=== PATIENT | female | born 1940 | race Caucasian/White ===

== ENCOUNTER 2016-12-03 14:45 | Outpatient (CLI) | payer MEDICARE, OTHER ==
--- OUTSIDE RECORDS SUMMARY | 2016-12-03 14:50 | XMS | Clinical Summary ---
:1940 Author Organization [facility] Address [address] [place] [address] Phone Care Team Providers Name Role Phone , Primary Care Provider Unavailable Allergies No Known Allergies Current Medications Prescription Sig. Disp. Refills Start Date End Date Status amLODIPine (NORVASC) 10 Take 10 mg by mouth Active MG tablet daily. clopidogrel (PLAVIX) 75 Take 75 mg by mouth Active mg tablet daily. levothyroxine (SYNTHROID, Take 75 mcg by Active LEVOTHROID) 75 MCG tablet mouth Every morning on an empty stomach. lisinopril Take 40 mg by mouth Active (PRINIVIL,ZESTRIL) 40 MG daily. tablet simvastatin (ZOCOR) 20 MG Take 20 mg by mouth Active tablet daily. propranolol (INDERAL LA) Take 120 mg by Active 120 MG 24 hr capsule mouth daily. aspirin 81 MG EC tablet Take 81 mg by mouth Active daily. Active Problems Problem Noted Date Hyperlipidemia LDL goal <130 11/29/2015 Hypertension with goal blood pressure less than 130/85 11/29/2015 Lung cancer (HCC) 11/29/2015 Parotid mass 11/29/2015 Aneurysm of left carotid artery (HCC) 11/29/2015 History of left-sided carotid endarterectomy 11/29/2015 History of right-sided carotid endarterectomy 11/29/2015 Simple chronic bronchitis (HCC) 11/29/2015 Encounters Date Type Specialty Care Team Description 09/25/2016 Scanned Document from Last 3 Months Social History Tobacco Use Types Packs/Day Years Used Date Current Every Day Smoker Alcohol Use Drinks/Week oz/Week Comments No Sex Assigned at Date Recorded Not on file Last Filed Vital Signs Vital Sign Reading Time Taken Blood Pressure 120/59 01/04/2016 6:45 AM CDT Pulse 75 01/04/2016 6:45 AM CDT Temperature 36.7 C (98 F) 01/04/2016 6:45 AM CDT Respiratory Rate 19 01/04/2016 6:45 AM CDT Oxygen Saturation 96% 01/04/2016 6:45 AM CDT Inhaled Oxygen Concentration - - Weight 68.4 kg (150 lb 11.2 oz) 01/04/2016 6:45 AM CDT Height 162.6 cm (5' 4") 01/03/2016 10:00 AM CDT Body Mass Index 25.87 01/04/2016 6:45 AM CDT Plan of Treatment Not on file Implants Implanted Type Area Mechanical Intern Device Expiration Model / Identifier Date Serial / Lot Azur Cx Coil Coil Left: TERUMO:MICROVEN 09/08/2020 [id number] / Implanted:Qty: 1 on 11/29/2015 by Bob Noriega MD Carotid TION / Artery [id number] Azur Helical Hydrocoil Embolization System Coil Left: TERUMO:MICROVEN 07/2020 [id number] / Implanted:Qty: 1 on 11/29/2015 by Bob Noriega MD Carotid TION / Artery [id number] Azur Helical Hydrocoil Embolization System Coil Left: TERUMO:MICROVEN [id number] / Implanted:Qty: 1 on 11/29/2015 by Bob Noriega MD Carotid TION / Artery [id number] Azur Helical Hydrocoil Embolization System Coil Left: TERUMO:MICROVEN [id number] / Implanted:Qty: 1 on 11/29/2015 by Bob Noriega MD Carotid TION / Artery [id number] Dallas Viabhan Endoprosthesis Stents- GORE 09/19/2018 [id number] / Implanted:Qty: 1 on 01/03/2016 by Bob Noriega MD Periphe [id number] / ral Dallas Viabahn Endoprosthesis Stents- GORE 02/21/2018 [id number] / Implanted:Qty: 1 on 01/03/2016 by Bob Noriega MD Periphe [id number] / ral Results Not on filefrom Last 3 Months
--- NOTE | 2016-12-03 16:10 | CT ---
CT CHEST NONCONTRAST: Date: 12/03/16 HISTORY: Right upper lobe lung cancer. Radiation therapy. Restaging. COMPARISON: 05/24/16 and 12/05/15. FINDINGS: Parenchymal scarring at the right apex surrounds a 0.4 cm nodule that is unchanged in appearance fro m the previous exam. More inferiorly within the right upper lobe, an oval 0.4 cm nodule is now appar ent. No other new parenchymal nodules are visible. No pleural fluid or pneumothorax. Lack of contras t limits evaluation of the mediastinum. No bulky adenopathy is apparent. Bilateral breast prostheses are partially visualized. IMPRESSION: 1. Stable CT appearance of the original right upper lobe nodule with surrounding scarring. 2. Interval appearance of a 0.4 cm nodule slightly more inferiorly within the right upper lobe. Whi le its morphology is not particularly aggressive, its interval appearance must be viewed with some d egree of concern. Close continued CT follow-up is suggested. POS: [facility]
== END 2016-12-03 14:46 | disposition home or self-care (01) ==
LOC: SCSCT 14:45
PROVIDERS: ATTEND Radiology Radiation Oncology
DX: C34.11 Malignant neoplasm of upper lobe, right bronchus or lung (principal)
CPT/HCPCS: 71250

== ENCOUNTER 2017-02-26 15:25 | Outpatient (CLI) | payer MEDICARE, OTHER ==
--- NOTE | 2017-02-26 18:57 | CT ---
CHEST CT WITHOUT CONTRAST: 02/26/17 COMPARISON: 12/03/16, 05/24/16, 12/05/15. HISTORY: Right upper lobe cancer. Status post video surgery. TECHNIQUE: Chest CT is performed without contrast. Coronal reformatted images are submitted for interpretation. FINDINGS: Limited evaluation of the mediastinum due to the lack of iodinated contrast. No mediastinal mass, lym phadenopathy, or hematoma. Nonspecific, nonenlarged, right paratracheal and precarinal lymph nodes. H eart size is within normal limits. No significant pericardial fluid. Coronary artery calcifications a re identified. Stable atherosclerosis of the visualized aorta. Focal prominence of the origin of the left subclavian artery. Bilateral breast augmentation is noted. No axillary lymphadenopathy. The visualized upper solid organs are unremarkable. Gallbladder is surgically absent. Trachea and pina tral bronchi are patent. Stable interstitial opacification of the right upper lobe. Stable linear opa city on the periphery of this area of interstitial opacification. The thickness of this linear opacit y continues to be approximately 5 mm. No new abnormal opacity in the left or right lung parenchyma ar e appreciated. Stable focal opacity in the posterior aspect of the left upper lobe, measuring 0.7 cm. Minimal scarring in the lingula is noted. No pneumothorax or pleural effusion. No lytic or blastic l esions in the osseous structures. IMPRESSION: 1. Stable post treatment change in the right upper lobe. 2. Stable opacity in the left upper lobe, since May 2016. Opacity is difficult to appreciate o n exam from November 2015. Consider repeat exam in 7 months to assess for 1.5 years of stability. Lesion size is at the imaging threshold for PET. POS: [facility]
== END 2017-02-26 15:26 | disposition home or self-care (01) ==
LOC: SCSCT 15:25
PROVIDERS: ATTEND Radiology Radiation Oncology
DX: C34.11 Malignant neoplasm of upper lobe, right bronchus or lung (principal); R91.8 Other nonspecific abnormal finding of lung field; Z98.890 Other specified postprocedural states
CPT/HCPCS: 71250

== ENCOUNTER 2017-05-12 10:13 | Emergency (ER) | payer MEDICARE, OTHER ==
--- NOTE | 2017-05-12 12:10 | RAD ---
AP VIEW OF THE CHEST: INDICATION: Cough, body aches, and sore throat. COMPARISON: None. FINDINGS: Lungs are clear. Cardiomediastinal silhouette is within normal limits. There is scarring within the right upper lobe. No pleural effusion is evident. No acute osseous abnormality is noted. There is partial visualization of instrumentation involving the right proximal humerus. IMPRESSION: 1. No acute cardiopulmonary abnormality. 2. Mild scarring involving the right lung apex. POS: [facility]
== END 2017-05-12 11:35 | disposition home or self-care (01) ==
LOC: SCSER 10:13
DX: J40 Bronchitis, not specified as acute or chronic (principal); B34.9 Viral infection, unspecified; E78.5 Hyperlipidemia, unspecified; Z86.73 Personal history of transient ischemic attack (TIA), and cerebral infarction without residual deficits; J44.9 Chronic obstructive pulmonary disease, unspecified; F17.210 Nicotine dependence, cigarettes, uncomplicated; Z79.899 Other long term (current) drug therapy
CPT/HCPCS: 71045; 99406; J7620

== ENCOUNTER 2017-10-07 12:30 | Outpatient (CLI) | payer MEDICARE, OTHER ==
--- NOTE | 2017-10-07 15:27 | CT ---
CT CHEST: Date: 10/07/17 COMPARISON: 12/05/15, 05/24/16, 02/26/17, and 12/03/16. HISTORY: 6 month follow-up examination for right upper lobe lung cancer, status post radiation therapy. Restag ing. TECHNIQUE: Serial axial CT imaging obtained at 5 mm intervals from thoracic inlet through upper abdomen without contrast. Coronal reformatted imaging obtained. FINDINGS: Lack of contrast media limits assessment of the imaged viscera, the vascular structures, and for lymp hadenopathy. Bilateral breast implants are present. Imaged upper abdomen demonstrated cholecystectomy clips. There is atherosclerotic calcification of the abdominal aorta and its branches. No mediastinal or pleural fluid. Trace stable pericardial fluid noted anteriorly. There is atherosclerotic calcification of the coronary arteries, as well as the thoracic aorta at the level of the arch extending into the origin of the great vessels. Limited assessment for lymphadenopathy demonstrates a lymph node in the AP window measuring 1.2 cm in short axis dimension, enlarged and not definitely seen on prior imaging. There are subcentimeter pre carinal nodes which are grossly unchanged. There is an ill-defined focal area of pulmonary parenchymal opacity in the right upper lobe with nuris cent areas of linear opacity extending anteriorly to the pleural surface, as well as laterally to the pleural surface. Measuring this focal area of parenchymal opacity within the right upper lobe is dif ficult secondary to its ill-defined nature. A nodular density is seen centered in this region, measur ing 1.1 cm in transverse dimension, best seen on coronal image 76. This is unchanged when compared to the 02/26/17 examination. No new abnormality is apparent within the right upper lobe. No worrisome nodule/mass lesion noted within right middle or right lower lobe. There is a mass within the left suprahilar region/medial left upper lobe measuring 1.5 x 1.6 cm, best seen on axial image 24 and coronal image 70. There is a left upper lobe nodule on axial image 26 which measures 6.0 mm, more conspicuous than on p rior examination performed 02/26/17, at which time this lesion measured in the 4.0 mm range. It is al so more conspicuous than 05/24/16. No dominant mass lesion or nodule is apparent within left upper lobe otherwise. Small nodule in superior segment left lower lobe best seen on coronal image 97 measures up to approxi mately 4.0 mm, stable. Review of the osseous structures demonstrates no worrisome lytic or blastic lesion. IMPRESSION: 1. New central left upper lobe 1.6 x 1.6 cm mass, worrisome for bronchogenic carcinoma. Adjacent enl arged AP window lymph node concerning for metastatic adenopathy. 2. Additional left upper lobe nodule seen on image 26 is more conspicuous than on prior imaging, but only measures in the 6.0 mm range at this point. 3. Post-treatment changes of right upper lobe lesion. RECOMMENDATION: PET scan as findings within left upper lobe and AP window are concerning for interval development of malignancy. CODE T. Results called to Dr. Funes at the time of interpretation. POS: [facility]
== END 2017-10-07 12:31 | disposition home or self-care (01) ==
LOC: SCSCT 12:30
PROVIDERS: ATTEND Radiology Radiation Oncology
DX: C34.11 Malignant neoplasm of upper lobe, right bronchus or lung (principal); Z92.3 Personal history of irradiation; Z98.890 Other specified postprocedural states
CPT/HCPCS: 71250

== ENCOUNTER 2017-10-24 11:00 | Outpatient (CLI) | payer MEDICARE, OTHER ==
--- NOTE | 2017-10-24 15:09 | PET ---
PET CT: HISTORY: Previous right lung cancer. Status post radiation therapy. New left lung nodules and lymph node. TECHNIQUE: PET scanning with CT attenuation correction performed from the base of the brain through the proximal thighs following the intravenous administration of 9.5 mCi [id number] in the left antecubital fossa. Im aging was performed after an uptake interval of 55 minutes. COMPARISON: PET CT dated 08/17/15. CORRELATION: CT chest dated 10/07/17. FINDINGS: There are two hypermetabolic nodules in the left upper lobe with SUVs of 10 in the 15 mm nodule and 2 .6 in the 6 mm nodule. No hypermetabolic nodules are seen in the right lung. There is a hypermetaboli c mediastinal lymph node in the AP window with a SUV of 9.4. No sandra hypermetabolism seen in the hil ar regions, neck, chest, abdomen, or pelvis. There is a focus of increased uptake in the region of the left tonsil with a SUV of 10.3. No hypermet abolic liver, adrenal, or skeletal lesions are seen. Physiologic activity is noted in the GI and tracts, brain and heart. There is also physiologic act ivity in the neck musculature. The CT scan used for attenuation correction demonstrates no evidence of pleural effusions or ascites. Bilateral breast implants, nonobstructing bilateral renal calculi, left anterior/inferior pole renal cyst, sigmoid diverticulosis, and 3.7 cm abdominal aortic aneurysm are noted. IMPRESSION: 1. Hypermetabolic nodules in the left upper lobe and mediastinal lymph node are suspicious for metas tatic disease. 2. 3.7 cm abdominal aortic aneurysm. 3. Nonobstructing bilateral renal calculi. 4. Left renal cyst. 5. Sigmoid diverticulosis. POS: [facility]
== END 2017-10-24 11:01 | disposition home or self-care (01) ==
LOC: PET 11:00
PROVIDERS: ATTEND Radiology Radiation Oncology
DX: R91.8 Other nonspecific abnormal finding of lung field (principal); N20.0 Calculus of kidney; N28.1 Cyst of kidney, acquired; K57.30 Diverticulosis of large intestine without perforation or abscess without bleeding; I71.4 Abdominal aortic aneurysm, without rupture; Z85.118 Personal history of other malignant neoplasm of bronchus and lung; Z92.3 Personal history of irradiation
CPT/HCPCS: 78815; A9552

== ENCOUNTER 2017-12-25 13:11 | Outpatient (CLI) | payer MEDICARE, OTHER | END 2017-12-25 13:12 | disposition home or self-care (01) | LOC: CP 13:11 | PROVIDERS: ATTEND Internal Medicine Critical Care Medicine | DX: R91.8 Other nonspecific abnormal finding of lung field (principal) | CPT/HCPCS: 94060; 94727; 94729 ==

== ENCOUNTER 2017-12-30 05:56 | Day surgery (SDC) | payer MEDICARE, OTHER ==
[2017-12-25 16:08] VITALS: BMI 26.2
[2017-12-30] MEDS ORDERED: Fentanyl 100 MCG/2 ML VIAL ONE (07:23)
--- NOTE | 2017-12-30 11:31 | OP ---
DATE OF PROCEDURE: 12/30/2017 SURGEON: Dr. Vimal Rock PROCEDURE: Fiberoptic bronchoscopy. PREOPERATIVE DIAGNOSIS: Left upper lobe lung mass. POSTOPERATIVE DIAGNOSIS: Left upper lobe lung mass. ANESTHESIA: General endotracheal. DESCRIPTION OF PROCEDURE: Informed consent was obtained from the patient prior to the procedure. Th e patient was placed in the supine position. She was intubated by the Anesthesia team and placed on mechanical ventilation. She had a 7.[address]. A 2.0 Olympus bronchoscope was pl aced through an adapter into the patient's endotracheal tube while she was under sedation. Significa nt findings included mucus secretions in the right main stem bronchus which were easily removed. The right upper lobe, right middle lobe, and right lower lobe were normal in appearance. The left katiana tem bronchus, left lower lobe and left upper lobe were normal in appearance. Under fluoroscopic guid ance, the most medial aspect of the apical posterior segment of the left upper lobe was biopsied with brushes and then with biopsy forceps. There was minimal bleeding present. Again, no endobronchial lesions were seen. The patient tolerated the procedure well and sent to the recovery room in stable condition. We will await pathology results for further disposition.
[2017-12-30] MEDS ORDERED: Lidocaine 1% PF 5 ML VIAL ONE (14:20)
[2017-12-30] MEDS ORDERED: ePHEDrine/0.9% NaCl/PF SYRINGE 50 mg/10 ml ONE (14:20)
[2017-12-30] MEDS ORDERED: Glycopyrrolate 0.2 MG/ML 5 ML SYRINGE ONE (14:20)
[2017-12-30] MEDS ORDERED: PHENYLEPHRINE-NS 100 MCG/ML 10 ML SYRINGE ONE (14:20)
[2017-12-30] MEDS ORDERED: Succinylcholine Chloride 20 MG/ML 10 ml SYRINGE FS ONE (14:20)
[2017-12-30] MEDS ORDERED: PROPOFOL 200 MG/20 ML VIAL ONE (14:20)
== END 2017-12-30 09:40 | disposition home or self-care (01) ==
LOC: SDC 05:56
PROVIDERS: ATTEND Internal Medicine Critical Care Medicine
PROC: 0BDG8ZX Extraction of Left Upper Lung Lobe, Via Natural or Artificial Opening Endoscopic, Diagnostic (ICD-10-PCS; principal; 2017-12-30)
PROC: 0BB88ZX Excision of Left Upper Lobe Bronchus, Via Natural or Artificial Opening Endoscopic, Diagnostic (ICD-10-PCS; 2017-12-30)
DX: R91.1 Solitary pulmonary nodule (principal); F17.210 Nicotine dependence, cigarettes, uncomplicated; J44.9 Chronic obstructive pulmonary disease, unspecified; E03.9 Hypothyroidism, unspecified; E78.5 Hyperlipidemia, unspecified; I10 Essential (primary) hypertension; M85.80 Other specified disorders of bone density and structure, unspecified site; F01.50 Vascular dementia, unspecified severity, without behavioral disturbance, psychotic disturbance, mood disturbance, and anxiety; Z79.02 Long term (current) use of antithrombotics/antiplatelets; Z79.899 Other long term (current) drug therapy
CPT/HCPCS: 88112; 88305; J2001; J2704; J3010

== ENCOUNTER 2018-01-20 09:30 | Outpatient (CLI) | payer MEDICARE, OTHER ==
[~2018-01-20 09:30] MED LIST: Iopamidol 370 76% 100 ML VIAL ONE
--- NOTE | 2018-01-20 14:48 | CT ---
CHEST CT SCAN WITH IV CONTRAST: COMPARISON: Chest CT scan without contrast 10/07/2017. HISTORY: Right upper lobe lung cancer status post radiation with new nodule in lymph nodes on PET scan. FINDINGS: Again noted is some right upper lobe linear and nodular scarring, stable. In the left perihilar kendrick on, there is an approximately 1.2 x 1.5 cm diameter nodule adjacent to the left hilum. This is sligh tly larger than the prior study at which time it measured 1.0 x 1.4 cm. The aortopulmonary lymph nod e, which is adjacent to this mass, has also increased in size now measuring approximately 1.5 cm alvarado sversely where it previously measured 1.2 cm. Additionally, there are some other enlarged left hilar lymph nodes including 1 node adjacent to the left upper lobe bronchus which now measures 1.1 x 1.6 c m where previously it was approximately 0.8 cm. There also appears to be a lymph node on the medial aspect of the left main pulmonary artery which measures approximately 2 cm in diameter where it previ ously measured approximately 1.5 cm in diameter. No evidence for pleural effusion. No new pulmonary parenchymal process. Small stable hiatal hernia. IMPRESSION: Enlargement of the left perihilar nodule as well as enlargement of left AP window and left hilar lymp h nodes since the prior study. Stable right upper lobe fibrotic and nodular scarring. No significan t pleural effusion. Trace pericardial effusion, stable. Small renal calcific foci, possibly nonobst ructing renal calculi. Bilateral renal cysts. Status post cholecystectomy. Other findings as above . POS: [facility]
== END 2018-01-20 09:31 | disposition home or self-care (01) ==
LOC: SCSCT 09:30
PROVIDERS: ATTEND Radiology Radiation Oncology
DX: C34.11 Malignant neoplasm of upper lobe, right bronchus or lung (principal); R91.1 Solitary pulmonary nodule; I31.3 Pericardial effusion (noninflammatory); N28.1 Cyst of kidney, acquired; Z90.49 Acquired absence of other specified parts of digestive tract
CPT/HCPCS: 71260; 82565

== ENCOUNTER 2018-02-17 07:48 | Day surgery (SDC) | payer MEDICARE, OTHER ==
[2018-02-14 14:07] VITALS: BMI 29.5
[2018-02-17] MEDS ORDERED: Fentanyl 100 MCG/2 ML VIAL ONE (10:13)
[2018-02-17] MEDS ORDERED: Albuterol Sulfate 1.25 MG/3 ML NEB ONE (12:25)
--- NOTE | 2018-02-18 15:31 | OP ---
DATE OF PROCEDURE: 02/17/2018 SERVICE: Pulmonary Medicine. PROCEDURE PERFORMED: Fiberoptic bronchoscopy with, 1. Limited visual airway inspection. 2. Endoscopic bronchial ultrasound-guided transbronchial needle aspiration of L10. PREPROCEDURE DIAGNOSES: 1. Pulmonary mass. 2. Mediastinal lymphadenopathy. POSTPROCEDURE DIAGNOSES: 1. Pulmonary mass. 2. Mediastinal lymphadenopathy. ANESTHESIA: Please refer to Anesthesia documentation for list of medications administered during this procedure. PREANESTHESIA ASSESSMENT: H and P had been performed. The patient's medications and allergies were reviewed. CONSENT: Informed consent was obtained after discussing the rationale, benefits, and risks of the procedure. Alternative options for sample collection were discussed. TIME-OUT: The patient was positively identified with name and date of . The proposed procedure was verified. DESCRIPTION OF PROCEDURE: After induction of anesthesia, the curvilinear endoscopic bronchial ultrasound Olympus bronchoscope was introduced through the endotracheal tube and into the tracheobronchial tree. Limited visual airway inspection was then performed and no abnormality was noted in the trachea or mainstem bronchi. A tracheal and sandra survey was performed. The endoscopic bronchial ultrasound-guided TBNA of station L10 was completed. There was no significant bleeding post biopsy. The patient had stable vitals throughout the entire procedure without significant desaturation. FINDINGS: 1. No endobronchial disease was noted in the distal trachea or mainstem bronchi on this limited evaluation. 2. Lara appeared sharp. 3. Rapid on-site examination of the L10 lymph node demonstrated a normal lymph node with copious lymphocytes. SPECIMENS OBTAINED: 1. FNA of a station L10 for cytology. 2. FNA of a station L10 for cell block (pending at time of dictation). COMPLICATIONS: None. ESTIMATED BLOOD LOSS: 2 mL. DISPOSITION: Discharge home when she meets criteria. Job ID: [id number]
== END 2018-02-17 14:02 | disposition home or self-care (01) ==
LOC: SDC 07:48
PROVIDERS: ATTEND Internal Medicine
PROC: 07D78ZX Extraction of Thorax Lymphatic, Via Natural or Artificial Opening Endoscopic, Diagnostic (ICD-10-PCS; principal; 2018-02-17)
DX: R59.0 Localized enlarged lymph nodes (principal); R91.8 Other nonspecific abnormal finding of lung field; J44.9 Chronic obstructive pulmonary disease, unspecified; I10 Essential (primary) hypertension; E78.5 Hyperlipidemia, unspecified; E03.9 Hypothyroidism, unspecified; F03.90 Unspecified dementia, unspecified severity, without behavioral disturbance, psychotic disturbance, mood disturbance, and anxiety; M85.80 Other specified disorders of bone density and structure, unspecified site; F17.210 Nicotine dependence, cigarettes, uncomplicated; Z79.02 Long term (current) use of antithrombotics/antiplatelets; Z79.899 Other long term (current) drug therapy
CPT/HCPCS: 88172; 88173; 88177; 88305; 93005; 93010; J3010

== ENCOUNTER 2018-07-07 08:51 | Outpatient (CLI) | payer MEDICARE, OTHER ==
[2018-07-07] MEDS ORDERED: Iopamidol 300 61% 100 ML VIAL FS ONE (09:00)
--- NOTE | 2018-07-07 11:06 | CT ---
Exam: Chest CT scan with IV contrast: HISTORY: Right upper lobe lung cancer R91. 1, C34. 1 1 COMPARISON: 01/20/2018 FINDINGS: There has been very slight improvement in the left hilar and perihilar and AP window adenopathy, sinc e the prior study. The previously noted left perihilar nodule now measures 0.8 cm whereas it previously measured 1.2 x 1.5 cm. The AP window lymph node now measures 1.3 x 2.2 cm where it previou sly measured 1.5 x 2.5 cm. The previously noted 1.1 cm diameter left hilar node now measures 0.8 cm. Minimal pericardial effusion. No new process. Small hiatal hernia. Stable renal cysts and renal c alculi. IMPRESSION: Minimal decrease in size of the left hilar and perihilar nodularity from prior study. No significant new process.
== END 2018-07-07 08:52 | disposition home or self-care (01) ==
LOC: SCSCT 08:51
PROVIDERS: ATTEND Radiology Radiation Oncology
DX: C34.11 Malignant neoplasm of upper lobe, right bronchus or lung (principal); R91.1 Solitary pulmonary nodule
CPT/HCPCS: 71260; 82565; Q9967

== ENCOUNTER 2018-10-09 08:41 | Outpatient (CLI) | payer MEDICARE, OTHER ==
[2018-10-09] MEDS ORDERED: Iopamidol 300 61% 100 ML VIAL FS ONE (09:00)
--- NOTE | 2018-10-09 11:24 | CT ---
Exam: Chest CT scan with IV contrast: HISTORY: Right upper lobe lung cancer, R 91.1, C 34.1 1 COMPARISON: 28/11/2018 FINDINGS: Again noted are some stable parenchymal changes in the right upper chest. The previously noted AP win [place] lymph node now measures 1.3 x 1.9 cm probably very slightly smaller. The left hilar nodularity appears stable. No new pleural effusion. 3 vessel coronary calcific disease. Stable pericardial effus ion. Stable small hiatal hernia. Stable bilateral renal cysts and probable nonobstructing left renal calculus. IMPRESSION: Stable to very slight improvement in the left AP window lymph node and stable appearing left hilar no dularity. No evidence for other significant new process or new metastasis.
== END 2018-10-09 08:42 | disposition home or self-care (01) ==
LOC: SCSCT 08:41
PROVIDERS: ATTEND Radiology Radiation Oncology
DX: C34.11 Malignant neoplasm of upper lobe, right bronchus or lung (principal); R91.8 Other nonspecific abnormal finding of lung field; Z92.3 Personal history of irradiation
CPT/HCPCS: 71260; 82565; Q9967

== ENCOUNTER 2019-04-13 08:17 | Outpatient (CLI) | payer MEDICARE, OTHER ==
--- NOTE | 2019-04-13 11:38 | CT ---
CHEST CT WITH CONTRAST: COMPARISON: 10/09/2018. HISTORY: Left lung mass. COMPARISON: 10/09/2018, 07/07/2018, 01/29/2018. CORRELATION: PET imaging 10/24/2017. FINDINGS: Bilateral breast augmentation is noted. Nonenlarged lower neck and axillary lymph nodes. Visualized salivary glands and thyroid gland are unr emarkable. Atherosclerosis of a nonaneurysmal aorta. There is mild luminal narrowing due to atherosclerotic dise ase of the descending thoracic aorta. The visualized great vessels of the neck are patent. Heart has a normal size. No significant pericardial effusion. There are coronary calcifications. Conglomeration of enlarged prevascular lymph nodes measuring 3.3 x 1.5 cm. Previously, this conglome ration of lymph node measured 3.5 x 1.4 cm. Additional prevascular lymph node measures 1.6 x 1.9 cm. Previously, this lymph node measured 1.9 x 1.3 cm. Soft tissue nodule in the adjacent left suprah ilar lung parenchyma measures 1.0 x 1.3 cm. The, this nodule measured 1.3 x 0.9 cm. Additional nonspecific mediastinal lymph nodes are noted. Upper abdomen: Grossly no abnormality. Trachea and central bronchi are patent. No pleural effusion. No pneumothorax. Right lung: Redemonstration of irregular marginated opacity in the right lung apex measuring 2.8 x 2. 5 cm. Finding is unchanged since January 2018. Posttreatment change is favored. There are no new suspicious masses or nodules in the right lung. No new consolidation. Left lung: Patchy groundglass opacity in the left upper lobe. Findings are nonspecific. No suspiciou s nodules, or masses. No new/suspicious consolidation. Irregular opacity in the left upper lobe, measuring 0.9 cm in the craniocaudal dimension 0.5 cm. Previous PET imaging does demonstrate FDG avid ity. This lesion also measured 0.9 cm in the craniocaudal dimension in October 2018. IMPRESSION: 1. Presumed posttreatment changes in the right upper lobe. 2. Persistent irregular marginated nodule in the left upper lobe with previously reported FDG avidity . Based on the craniocaudal dimension, there is no change since October of 2018. There has been some change in the craniocaudal dimension since January of 2018 at which time the nodule measured 0.6 cm in the craniocaudal dimension. 3. Slight interval increase in size of mediastinal lymph nodes as described above. Additional prevasc ular lymph nodes are essentially stable. Stable size left suprahilar nodule. Transcribed Date/Time: 04/13/2019 11:53 AM
== END 2019-04-13 08:18 | disposition home or self-care (01) ==
LOC: SCSCT 08:17
PROVIDERS: ATTEND Radiology Radiation Oncology
DX: C34.11 Malignant neoplasm of upper lobe, right bronchus or lung (principal); R91.8 Other nonspecific abnormal finding of lung field; R91.1 Solitary pulmonary nodule; R59.0 Localized enlarged lymph nodes; Z92.3 Personal history of irradiation; Z98.890 Other specified postprocedural states
CPT/HCPCS: 71260; 82565

== ENCOUNTER 2020-07-12 13:28 | Outpatient (CLI) | payer MEDICARE, OTHER | END 2020-07-12 13:29 | disposition home or self-care (01) | LOC: BICRAD 13:28 | PROVIDERS: ATTEND Internal Medicine Critical Care Medicine | DX: R06.00 Dyspnea, unspecified (principal) | CPT/HCPCS: 71046 ==

== ENCOUNTER 2020-08-05 08:51 | Outpatient (CLI) | payer MEDICARE, OTHER | END 2020-08-05 08:52 | disposition home or self-care (01) | LOC: PET 08:51 | PROVIDERS: ATTEND Internal Medicine Hematology & Oncology | DX: C34.12 Malignant neoplasm of upper lobe, left bronchus or lung (principal); R91.8 Other nonspecific abnormal finding of lung field; I71.4 Abdominal aortic aneurysm, without rupture | CPT/HCPCS: 78815; A9552 ==

== ENCOUNTER 2020-09-05 14:19 | Outpatient (CLI) | payer MEDICARE, OTHER ==
[2020-09-05 17:35] LABS: Anion Gap 14 mmol/L (10-20); BUN (Urea Nitrogen) 13 mg/dL (9.8-20.1); Calc. Creatinine Clearance 0 mL/min (70-130); Calcium 9.7 mg/dL (7.8-10.44); Carbon Dioxide 28 mmol/L (23-31); Chloride 101 mmol/L (98-107); Glucose 66 mg/dL (83-110); Potassium 4.9 mmol/L (3.5-5.1); Sodium 138 mmol/L (136-145)
[2020-09-05 17:54] LABS: Hemoglobin 13.4 g/dL (12.0-15.5); Mean Corpuscular HGB CONC 31.9 g/dL (32.0-36.0); Mean Corpuscular Hemoglobin 28.6 pg (27.0-33.0); Mean Corpuscular Volume 89.7 fl (81.6-98.3); Mean Platelet Volume 10.7 fl (7.4-10.4); Platelet Count 171 10x3/uL (150-450); RBC Distribution Width 14.5 % (11.5-14.5); Red Blood Cell (RBC) Count 4.68 10x6/uL (3.90-5.03); White Blood Cell (WBC) Count 9.7 10x3/uL (3.5-10.5)
== END 2020-09-05 14:20 | disposition home or self-care (01) ==
LOC: LABBT 14:19
PROVIDERS: ATTEND Thoracic Surgery (Cardiothoracic Vascular Surgery)
DX: Z01.812 Encounter for preprocedural laboratory examination (principal); C34.11 Malignant neoplasm of upper lobe, right bronchus or lung
CPT/HCPCS: 80048; 85027

== ENCOUNTER 2020-09-07 05:57 | Day surgery (SDC) | payer MEDICARE, OTHER ==
[2020-09-07] MEDS ORDERED: Bupivacaine PF 0.5% 30 ML VIAL ONE (06:50)
[2020-09-07] MEDS ORDERED: EPINEPHrine 1 MG/ML AMP ONE (06:50)
[2020-09-07] MEDS ORDERED: Fentanyl 100 MCG/2 ML VIAL ONE ×2 (07:07→09:12)
[2020-09-07] MEDS ORDERED: Rocuronium Bromide 10 MG/ML (10ML VIAL) ONE (07:30)
[2020-09-07] MEDS ORDERED: PROPOFOL 200 MG/20 ML VIAL ONE (07:30)
[2020-09-07] MEDS ORDERED: Ondansetron PF 4 MG/2 ML Vial ONE (07:30)
[2020-09-07] MEDS ORDERED: Dexamethasone 20 MG/5 ML VIAL ONE (07:30)
[2020-09-07] MEDS ORDERED: SUGAMMADEX SODIUM 200 MG/2 ML VIAL ONE (08:36)
[2020-09-07] MEDS ORDERED: hydrALAZINE 20 MG/ML VIAL ONE ×2 (09:08→12:01)
[2020-09-07] MEDS ORDERED: HYDROcodone/Acetaminophen 5/325 mg Tablet ONE (12:50)
== END 2020-09-07 13:15 | disposition home or self-care (01) ==
LOC: SDC 05:57
PROVIDERS: ATTEND Thoracic Surgery (Cardiothoracic Vascular Surgery)
PROC: 07B70ZX Excision of Thorax Lymphatic, Open Approach, Diagnostic (ICD-10-PCS; principal; 2020-09-07)
DX: C77.1 Secondary and unspecified malignant neoplasm of intrathoracic lymph nodes (principal); C34.11 Malignant neoplasm of upper lobe, right bronchus or lung; I72.0 Aneurysm of carotid artery; I10 Essential (primary) hypertension; J43.9 Emphysema, unspecified; Z79.02 Long term (current) use of antithrombotics/antiplatelets; Z79.899 Other long term (current) drug therapy; Z88.6 Allergy status to analgesic agent
CPT/HCPCS: 71045; 88184; 88305; 88313; 88331; 88341; 88342; J0171; J0360; J0690; J1100; J2405; J2704; J3010; S0020

== ENCOUNTER 2020-12-13 09:07 | Outpatient (CLI) | payer MEDICARE, OTHER | END 2020-12-13 09:08 | disposition home or self-care (01) | LOC: PET 09:07 | PROVIDERS: ATTEND Internal Medicine Hematology & Oncology | DX: C34.12 Malignant neoplasm of upper lobe, left bronchus or lung (principal); R91.8 Other nonspecific abnormal finding of lung field; Z98.890 Other specified postprocedural states | CPT/HCPCS: 78815; A9552 ==

== ENCOUNTER 2021-10-26 11:45 | Outpatient (CLI) | payer MEDICARE, OTHER | END 2021-10-26 11:46 | disposition home or self-care (01) | LOC: PET 11:45 | PROVIDERS: ATTEND Internal Medicine Hematology & Oncology | DX: C34.12 Malignant neoplasm of upper lobe, left bronchus or lung (principal); R91.1 Solitary pulmonary nodule | CPT/HCPCS: 78815; A9552 ==

== ENCOUNTER 2022-05-01 11:00 | Outpatient (CLI) | payer MEDICARE, OTHER | END 2022-05-01 11:01 | disposition home or self-care (01) | LOC: PET 11:00 | PROVIDERS: ATTEND Internal Medicine Hematology & Oncology | DX: C34.12 Malignant neoplasm of upper lobe, left bronchus or lung (principal); R91.1 Solitary pulmonary nodule | CPT/HCPCS: 78815; A9552 ==